=== PATIENT | female | born 1995 | race Asian ===

== ENCOUNTER 2021-10-20 23:11 | Emergency (ER) | payer MEDICAID, OTHER ==
[~2021-10-20] VITALS: Ht 152.4 cm; Wt 48.5 kg
[2021-10-20 23:20] VITALS: BP_SYST 107
--- NOTE | 2021-10-20 23:42 | NUR ---
Patient to ER bed 4 to gown for evaluation. Side rails up. Report given to Kelly COLEMAN.
--- NOTE | 2021-10-21 | NUR ---
Pt came from home with c/o upper abdominal pain. Pt reports having N/V today that started around 2100. Pt reports currently having a UTI. Pt is A&O x 4, ambulatory, and following commands. Safety precautions in place and connected to monitor.
--- NOTE | 2021-10-21 00:20 | NUR ---
Dr. Figueroa at bedside.
[2021-10-21] MEDS ORDERED: NACL 0.9% 1,000 ML IV ONE (00:30)
[2021-10-21] MEDS ORDERED: ONDANSETRON HCL 4 MG/2 ML VIAL IVP ONE (00:30)
[2021-10-21 01:47] LABS: CALCIUM 8.9 mg/dL (8.4-11.0); CREATININE 0.78 mg/dL (0.55-1.30); POTASSIUM 3.6 mmol/L (3.5-5.1)
[2021-10-21 01:48] LABS: BASOPHILS % (AUTO) 0.5 % (0.0-2.0); EOSINOPHILS % (AUTO) 0.6 % (0.0-4.0); LYMPHOCYTES # (AUTO) 1.2 K/uL (1.0-5.5); LYMPHOCYTES % (AUTO) 20.6 % (20.5-51.5); MEAN CORPUSCULAR HEMOGLOBIN 27 pg (27-31); MEAN CORPUSCULAR HGB CONC 33 % (32-36); MEAN CORPUSCULAR VOLUME 81 fL (79.0-98.0); MONOCYTES # (AUTO) 0.4 K/uL (0.0-1.0); MONOCYTES % (AUTO) 6.1 % (1.7-9.3); NEUTROPHILS # (AUTO) 4.2 K/uL (1.8-7.7); NEUTROPHILS % (AUTO) 72.2 % (40.0-70.0); PLATELET COUNT (AUTO) 463 K/uL (130-430); RED BLOOD CELL COUNT(AUTO) 4.84 MIL/uL (4.2-6.2); RED CELL DISTRIBUTION WIDTH 13.5 % (9.0-15.0); WHITE BLOOD COUNT (AUTO) 5.8 K/uL (4.8-10.8)
[2021-10-21 01:59] LABS: ALBUMIN 3.3 g/dL (3.4-4.8); TOTAL BILIRUBIN 0.4 mg/dL (0.0-1.0)
[2021-10-21 02:29] LABS: BILIRUBIN,URINE NEGATIVE (NEGATIVE); BLOOD, URINE NEGATIVE (NEGATIVE); CLARITY/URINE CLEAR (CLEAR); COLOR,URINE YELLOW (YELLOW); GLUCOSE,URINE NEGATIVE (NEGATIVE); KETONES,URINE NEGATIVE (NEGATIVE); LEUKOCYTE ESTERASE ,URINE TRACE (NEGATIVE); NITRITE, URINE NEGATIVE (NEGATIVE); PH,URINE 5.5 (5.0-8.0); PROTEIN URINE NEGATIVE (NEGATIVE); UROBILINOGEN,URINE 0.2 (0.2-1.0)
[2021-10-21 02:40] LABS: BACTERIA,URINE FEW /HPF (None Seen); RBC,URINE 0-3 /HPF (0-3); WBC,URINE 0-3 /HPF (0-3)
[2021-10-21] MEDS ORDERED: MAG HYDROX/AL HYDROX/SIMETH 30 ML, DICYCLOMINE HCL 20 MG, LIDOCAINE VISCOUS 2% 15ML (PO... PO ONE ×3 (03:00)
[2021-10-21] MEDS ORDERED: ONDANSETRON 4 MG ODT TAB PO ONE (03:45)
--- NOTE | 2021-10-21 03:58 | NUR ---
Pt given jello before PO ZOFRAN per MD order.
[2021-10-21] MEDS ORDERED: METOCLOPRAMIDE HCL 10 MG/2 ML VIAL IM ONE (04:30)
--- NOTE | 2021-10-21 04:32 | NUR ---
Pt denied administration of reglan. notified.
[2021-10-21 04:35] VITALS: BP_SYST 116
--- NOTE | 2021-10-21 04:35 | NUR ---
Patient given written and verbal discharge instructions and verbalizes understanding. ER Dr. Figueroa discussed with patient the results and treatment provided. Patient in stable condition. ID arm band removed. IV catheter removed intact and dressing applied, no active bleeding. Patient educated on pain management and to follow up with PMD. Pain Scale 0 Opportunity for questions provided and answered. Medication side effect fact sheet provided.
== END 2021-10-21 04:35 | disposition home or self-care (01) ==
LOC: SED 23:11
DX: R11.2 Nausea with vomiting, unspecified (principal); J45.909 Unspecified asthma, uncomplicated; Z88.1 Allergy status to other antibiotic agents
CPT/HCPCS: 99283; 80053; 81000; 84702; 85025; 87040; 87086; 36415; 96374; 96361; Q0162; J2001; J2765; J2405; J7030